=== PATIENT | female | born 1960 | race Caucasian/White ===

== ENCOUNTER 2016-12-15 19:19 | Emergency (ER) | payer OTHER ==
[~2016-12-15] VITALS: Ht 157.5 cm; Wt 54.0 kg
--- NOTE | 2016-12-15 19:21 | NUR ---
CALLED PT X3. NO RESPONSE. NO ONE IN WAITING ROOM.
--- NOTE | 2016-12-15 19:40 | NUR ---
TO BED 7 A 55 YO MALE BIB , PT C/O SUDDEN ONSET NVD, WITH DIZZINESS X 2 HRS. DENIES ABDOMINAL PAIN. VSS. NONDIAPHORETIC. GOWNED. INITIATED COMFORT AND SAFETY MEASURES. AWAITING FOR ER MD HARDY.
--- NOTE | 2016-12-15 19:45 | NUR ---
Dr Coronel at bedside for eval.
[2016-12-15] MEDS ORDERED: IV NS 0.9% 1,000 ML BAG IV ONE ×2 (20:00→20:30)
[2016-12-15] MEDS ORDERED: METOCLOPRAMIDE HCL 10 MG/2 ML VIAL IV ONE (20:00)
[2016-12-15] MEDS ORDERED: KETOROLAC TROMETHAMINE INJ 30 MG/ML VIAL IV ONE (20:00)
[2016-12-15] MEDS ORDERED: IV NS 0.9% 1,000 ML ONE (20:02)
[2016-12-15] MEDS ORDERED: IV SET PRIMARY 1 EA INFUS.SET MC ONE (20:02)
[2016-12-15] MEDS ORDERED: METOCLOPRAMIDE HCL 10 MG/2 ML VIAL ONE (20:02)
[2016-12-15] MEDS ORDERED: KETOROLAC TROMETHAMINE 15 MG/ML VIAL ONE (20:02)
[2016-12-15 20:03] LABS: BASOPHILS % (AUTO) 0.7 % (0.0-2.0); EOSINOPHILS # (AUTO) 0.1 /CMM (0.0-0.7); EOSINOPHILS % (AUTO) 1.2 % (0.0-6.0); HEMATOCRIT 41 % (33-45); HEMOGLOBIN 13.6 g/dL (11.5-14.8); LYMPHOCYTES # (AUTO) 1.4 /CMM (0.8-4.8); LYMPHOCYTES % (AUTO) 25.8 % (20.0-44.0); MEAN CORPUSCULAR HEMOGLOBIN 29 PG (26.0-33.0); MEAN CORPUSCULAR HGB CONC 33 g/dl (31.0-36.0); MEAN CORPUSCULAR VOLUME 88 fL (82-100); MONOCYTES # (AUTO) 0.3 /CMM (0.1-1.30); MONOCYTES % (AUTO) 5.2 % (2.0-12.0); NEUTROPHILS # (AUTO) 3.5 /CMM (1.8-8.9); NEUTROPHILS % (AUTO) 67.1 % (43.0-81.0); PLATELET COUNT (AUTO) 250 /CMM (150-450); RDW COEFFICIENT OF VARIATION 12.4 (11.5-15.0); RED BLOOD CELL COUNT(AUTO) 4.62 MIL/uL (4.0-5.2); WHITE BLOOD COUNT (AUTO) 5.3 K/uL (4.3-11.0)
[2016-12-15 20:11] LABS: CALCIUM, SERUM 9.4 mg/dL (8.5-10.1); CREATININE 0.8 mg/dL (0.6-1.3); POTASSIUM 4.1 mmol/L (3.5-5.1)
--- NOTE | 2016-12-15 20:15 | NUR ---
started a saline lock on the lac g20.
[2016-12-15 20:17] LABS: ALBUMIN 4.1 g/dL (3.4-5.0); BILIRUBIN,DIRECT 0.2 mg/dL (0.0-0.2); BILIRUBIN,TOTAL 0.9 mg/dL (0.2-1.0); TOTAL PROTEIN, SERUM 7.2 g/dL (6.4-8.2)
--- NOTE | 2016-12-15 20:19 | NUR ---
Medicated patient as ordered by Dr Coronel.
[2016-12-15] MEDS ORDERED: MAG HYDROX/AL HYDROX/SIMETH 30 ML UDC ONE (20:39)
[2016-12-15] MEDS ORDERED: FAMOTIDINE/PF INJ 20 MG/2 ML VIAL IV ONE ×2 (20:39→21:00)
[2016-12-15] MEDS ORDERED: LIDOCAINE VISCOUS 2% UD 15 ML UDC ONE (20:39)
[2016-12-15] MEDS ORDERED: LIDOCAINE VISCOUS 2% UD 15 ML UDC MM ONE (21:00)
[2016-12-15] MEDS ORDERED: MAG HYDROX/AL HYDROX/SIMETH 30 ML UDC PO ONE (21:00)
--- NOTE | 2016-12-15 21:25 | NUR ---
Patient reported feeling better, denies n/v.
--- NOTE | 2016-12-15 21:28 | NUR ---
IV removed. Catheter intact and site benign. Pressure and 4x4 applied to site. No bleeding noted. Patient discharged to home in stable condition. Written and verbal after care instructions given. Patient verbalizes understanding of instruction. Patient is ambulatory with steady gait accompanied by , no further complaints.
[2016-12-15 21:30] VITALS: BP 120/74
== END 2016-12-15 21:31 | disposition home or self-care (01) ==
LOC: ER 19:20
DX: R11.2 Nausea with vomiting, unspecified (principal); E86.0 Dehydration; R19.7 Diarrhea, unspecified; E03.9 Hypothyroidism, unspecified; E06.3 Autoimmune thyroiditis; Z88.2 Allergy status to sulfonamides
CPT/HCPCS: 36415; 80048-TC; 80076-TC; 83690-TC; 84443-TC; 85025-TC; A4606; J1885; J2765; J3490; J7030; Z7610